=== PATIENT | female | born 1960 | race Caucasian/White ===

== ENCOUNTER 2023-07-18 16:18 | Outpatient (CLI) | payer MEDICARE, SELFPAY ==
--- NOTE | ~2023-07-18 | XR_ITS ---
XR shoulder LT min 2V DATE: 07/18/2023 16:40 INDICATION: Anterior and posterior left shoulder pain for one month after moving furniture TECHNIQUE: 4 views COMPARISON: None FINDINGS: There is resection of the lateral aspect of the left clavicle. Mild osteoarthritic spurring at the glenoid process. No fracture, dislocation, periosteal reaction or bone destruction or abnormal left shoulder soft tissue calcification. IMPRESSION: Resection of lateral aspect of left clavicle Mild left glenohumeral osteoarthritis Reviewed, dictated and finalized at location B.
== END 2023-07-18 16:19 | disposition home or self-care (01) ==
LOC: ANHIMG 16:22
PROVIDERS: PCP Family Medicine; Visit Provider Family Medicine
DX: M25.819 Other specified joint disorders, unspecified shoulder (principal); M19.012 Primary osteoarthritis, left shoulder
CPT/HCPCS: 73030

== ENCOUNTER 2023-10-13 17:53 | Inpatient (IN) | payer MEDICARE, SELFPAY ==
[2023-10-13] VITALS (25 sets, daily range): BP systolic 86–174; BP diastolic 59–130; PULSE 67–105; RESP 10–29; TEMP 36.4; O2SAT 95–100; BMI 29.6
--- NOTE | ~2023-10-13 | XR_ITS ---
XR chest 1V portable DATE: 10/15/2023 08:21 INDICATION: Shortness of breath TECHNIQUE: Portable upright AP chest on 10/15/2023 at 0817 hours COMPARISON: 10/13/2023 CTA chest abdomen pelvis FINDINGS: Heart size appears within normal range. No hilar or mediastinal enlargement. Minimal infiltrate or atelectasis at the lateral left lung base corresponding to basilar atelectasis or infiltrate in the lingula on 10/30/2023 CT examination. No pleural effusion or pneumothorax. Osteopenia. IMPRESSION: Minimal infiltrate or atelectasis at the base of the lingula Reviewed, dictated and finalized at location A.
--- NOTE | ~2023-10-13 | CT_ITS ---
CTA chest abdomen pelvis Ordering provider: Dinorah Landeros PA-C History: . CP, SOB . Comparison: None. Technique: CT angiogram chest was performed following timed intravenous injection of contrast. Thin s lice axial images and reformatted coronal images were obtained. Three dimensional reformatted images of the chest were also obtained using a [employer] workstation. Also, CT of the abdomen and pelvis was pe rformed with IV contrast. Radiation reduction technique utilized. FINDINGS: CHEST: --PULMONARY ARTERIES: No pulmonary embolus. --VISUALIZED THORACIC INLET: Normal. --MEDIASTINUM: Aorta/coronary arteries: Mild atheromatous disease. Heart/other: The heart is not enlarged. Lymph nodes: No mediastinal or hilar adenopathy. --LUNGS: Atelectasis versus pneumonia in the lingula. No pulmonary nodules or masses. No effusion or pneumotho rax. --MUSCULOSKELETAL: Bones: Age appropriate degenerative changes of the spine. Superficial soft tissues: The superficial soft tissues are normal. ABDOMEN/PELVIS: --MUSCULOSKELETAL: Superficial soft tissues: The superficial soft tissues are normal. Bones: Age appropriate degenerative changes of the spine. --UPPER ABDOMINAL ORGANS: Liver: Fat infiltration. Small cysts seen in segment #7 measuring 1.4 cm.. Hepatomegaly. Measures 20 cm. Gallbladder: Normal. Spleen: Normal. Stomach/duodenum: Normal. Pancreas: Normal. Adrenals: Normal. Tiny lipoma and the right adrenal gland Kidneys: Normal. --PELVIC ORGANS: The bladder is normal. No bladder stones. Uterus is normal. --BOWEL AND MESENTERY: Colon: No evidence of diverticulitis.. No evidence of appendicitis Small Bowel: Slightly dilated proximal small bowel loops are is noted with slight thickening no defin ite obstructing lesion seen Peritoneum/mesentery: No free air or free fluid. No mesenteric lymphadenopathy. --RETROPERITONEUM: Mild atheromatous disease of the abdominal aorta. No retroperitoneal lymphadenop athy. IMPRESSION: CHEST: 1. No pulmonary embolism. 2. Area of atelectasis versus pneumonia in the lingula. ABDOMEN/PELVIS: 1. Slightly dilated jejunal loops with thickened wall which may indicate ileitis. Follow-up advised. 2. Fat infiltration with small cyst. Hepatomegaly. Reviewed, dictated and finalized at location A. IMPRESSION: CHEST: 1. No pulmonary embolism. 2. Area of atelectasis versus pneumonia in the lingula. ABDOMEN/PELVIS: 1. Slightly dilated jejunal loops with thickened wall which may indicate ileit is. Follow-up advised. 2. Fat infiltration with small cyst. Hepatomegaly.
--- NOTE | 2023-10-13 17:54 | ECG_ITS ---
Test Date: 2023-10-13 17:59:39 Measurements Intervals [place] Rate: 75 P: 58 [place]: 149 QRS: 73 QRSD: 77 T: 75 QT: 362 QTc: 404 Interpretive Statements SINUS RHYTHM ST DEVIATION AND MODERATE T-WAVE ABNORMALITY, CONSIDER ANTERIOR ISCHEMIA [-0.1+ mV T-WAVE IN V3/V4] ABNORMAL ECG No previous ECG available for comparison Electronically Signed On 10-14-2023 07:05:32 CDT by Rajeev Gonzales M.D.
--- NOTE | 2023-10-13 18:04 | ED.CHESTPAIN ---
HPI - Chest Pain General Chief Complaint: Chest Pain Stated Complaint: chest pain X5 hours Time Seen by Provider: 10/13/23 18:04 Focused HPI: Patient is a 63-year-old female, with PMH of COPD/smoking, HLD, DM, who presents the ED with report of midsternal chest pain. Patient reports pain began 5 hours ago. She thought it was related to acid reflux. Attempted taking Prilosec at home, but denied improvement. Pain has continued to worsen, worse with exertion. She reports mild shortness breath, diaphoresis. Denies nausea, vomiting, abdominal pain. Denies previous history of CAD. GENERAL: Ill-appearing, well-nourished, and in mild acute distress due to pain. HEAD: Normocephalic, atraumatic. CHEST: Clear to auscultation. ?No respiratory distress. occasional wheezing. HEART: Regular rate and rhythm.? SKIN: Slightly pale and diaphoretic. NEURO: ?Alert and oriented x3. Patient screened in triage and initial orders placed.? ?Additional care and disposition to be based upon?diagnostic testing and treatment. Source: patient Mode of arrival: ambulatory Limitations: no limitations Related Data Allergies Allergy/AdvReac Type Severity Reaction Status Date / Time No Known Allergies Allergy Verified 10/13/23 17:53 [facility] Past Medical History Medical History (Updated 10/13/23 @ 18:49 by Dinorah Landeros PA-C) BMI 23.0-23.9, adult BMI 25.0-25.9,adult BMI 26.0-26.9,adult BMI 28.0-28.9,adult Diabetes type 2, controlled Essential hypertension H/O carpal tunnel syndrome History of kidney stones Neuropathy Other emphysema Shoulder impingement Tobacco abuse Surgical History Surgical History H/O knee surgery Hx of elbow surgery Hx of foot surgery Family History Family History Father Cerebrovascular accident Family history of coronary artery disease Mother Heart disease Sibling No problems noted. Social History Social History Smoking packs per day: 0.5 Smoking cigarettes per day: 10.0 Years smoked: 40 Smoking pack-years: 20.00 Smoking status: Current some day smoker (smoking 4ppd with patch on now) Tobacco type: cigarettes Second hand tobacco smoke exposure: Yes Alcohol intake: former Substance use: never Substance use type: does not use Do You Feel Safe in your Home?: Yes Lack of Transportation: No Lack of Food: Never True Current Housing: I Have Housing Concerned About Future Housing: No Difficulty Paying Gas/Electric Bills: No Difficulty Paying for Meds: No Currently Unemployed: No Education: High School Diploma/GED Difficulty w/ Childcare or Family Care: No Living arrangements: with family Occupation/Education: retired 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 Gender identity (if verbalized by the patient): Female Course Vital Signs Vital signs: Vital Signs Temperature 97.5 F L 10/13/23 17:54 Pulse Rate 67 10/13/23 17:54 Respiratory Rate 20 10/13/23 17:54 Blood Pressure 167/69 H 10/13/23 17:54 Pulse Oximetry 96 10/13/23 17:54 Oxygen Delivery Room Air 10/13/23 17:54 Temperature 97.5 F L 10/13/23 17:54 Pulse Rate 89 10/13/23 19:01 Respiratory Rate 29 H 10/13/23 19:01 Blood Pressure 164/98 H 10/13/23 19:01 Pulse Oximetry 97 10/13/23 19:03 Oxygen Delivery Nasal Cannula 10/13/23 19:03 Oxygen Flow Rate 3 10/13/23 19:03 MDM - Chest Pain MDM Narrative Medical decision making narrative: MSE by ALMAZ in triage. Lab Data 10/13/23 18:15 10/13/23 18:15 Labs: Lab Results 10/13/23 Range/Units 18:15 WBC 12.6 H (4.5-10.0) K/mm3 RBC 4.96 (4.2-5.4) M/mm3 Hgb 14.6 (12.0-15.0) g/dL Hct 44.8 (37.0-47.0) % MCV 90.3 (80-100) fl MCH 29.4 (26-34) pg MCHC 32.6 (3
[2023-10-13 18:22] LABS: Basophils Percent Auto 0.2 % (0.2-1.2); Eosinophils Absolute Auto 0.3 K/mm3 (0-0.3); Eosinophils Percent Auto 2.3 % (0-4.4); Hematocrit 44.8 % (37.0-47.0); Hemoglobin 14.6 g/dL (12.0-15.0); Immature Granulocyte Absolute 0.08 K/mm3 (0.00-0.031); Immature Granulocyte Percent A 0.6 % (0-0.5); Lymphocytes Percent Auto 14.2 % (18.3-44.2); Mean Corpuscular HGB Conc 32.6 g/dl (32-36); Mean Corpuscular Hemoglobin 29.4 pg (26-34); Mean Corpuscular Volume 90.3 fl (80-100); Mean Platelet Volume 11.5 fl (7.4-10.4); Monocytes Absolute Auto 0.7 K/mm3 (0.1-0.6); Monocytes Percent Auto 5.3 % (2.6-8.5); Neutrophils Absolute Auto 9.8 K/mm3 (1.3-6.7); Neutrophils Percent Auto 77.4 % (45.5-73.1); Platelet Count Result 198 k/mm3 (150-375); Red Blood Count 4.96 M/mm3 (4.2-5.4); Red Cell Distribution Width 13.8 % (11.5-14.5); White Blood Count 12.6 K/mm3 (4.5-10.0)
--- NOTE | 2023-10-13 18:23 | ED.CHESTPAIN ---
HPI - Chest Pain General Chief Complaint: Chest Pain <NA Chaidez Last Filed: 10/14/23 18:14> Stated Complaint: chest pain X5 hours <NA Cahidez Last Filed: 10/14/23 18:14> Time Seen by Provider: 10/13/23 18:04 <NA Chaidez Last Filed: 10/14/23 18:14> Focused HPI: Patient is a 63-year-old female, with PMH of COPD/smoking, HLD, DM, who presents the ED with report of midsternal chest pain. Patient reports pain began 5 hours ago. She thought it was related to acid reflux. Attempted taking Prilosec at home, but denied improvement. Pain has continued to worsen, worse with exertion. Radiates to back. She reports mild shortness breath, diaphoresis. Denies nausea, vomiting, abdominal pain. Denies previous history of CAD. GENERAL: Ill-appearing, well-nourished, and in mild acute distress due to pain. HEAD: Normocephalic, atraumatic. CHEST: Clear to auscultation. ?No respiratory distress. occasional wheezing. HEART: Regular rate and rhythm.? SKIN: Slightly pale and diaphoretic. NEURO: ?Alert and oriented x3. Patient screened in triage and initial orders placed.? ?Additional care and disposition to be based upon?diagnostic testing and treatment. <Malena Molina PA-C - Last Filed: 10/14/23 09:01> Source: patient <NA Chaidez Last Filed: 10/14/23 18:14> Mode of arrival: ambulatory <NA Chaidez Last Filed: 10/14/23 18:14> Limitations: no limitations <NA Chaidez Last Filed: 10/14/23 18:14> History of Present Illness HPI narrative: This is a 63-year-old female that presents to the emergency department for chest pain. Reports she had just woken up. She started to developed a substernal chest pain. She thought maybe she was having bad reflux. She took a Prilosec with no relief. She has had worsening pain since. Reports shortness of breath due to the pain. The pain radiates to her back. She does not have any known history of coronary artery disease. Denies lower extremity edema. <Dinorah Landeros PA-C - Last Filed: 10/14/23 18:14> Related Data Home Medications: Home Medications Medication Instructions Recorded Confirmed gabapentin 300 mg capsule 600 mg PO TID 10/14/23 10/14/23 <Dinorah Landeros PA-C - Last Filed: 10/14/23 18:14> Allergies/Adverse Reactions: Allergies Allergy/AdvReac Type Severity Reaction Status Date / Time No Known Allergies Allergy Verified 10/13/23 17:53 <Dinorah Landeros PA-C - Last Filed: 10/14/23 18:14> Review of Systems Review of Systems: CONSTITUTIONAL: Denies fever CARDIOVASCULAR: Reports chest pain. Denies palpitations, or edema. RESPIRATORY: Reports dyspnea. <Dinorah Landeros PA-C - Last Filed: 10/14/23 18:14> All systems reviewed & are unremarkable except as noted in HPI and below <Dinorah Landeros PA-C - Last Filed: 10/14/23 18:14> [facility] Past Medical History Medical History: Medical History (Updated 10/15/23 @ 15:34 by Adeline Aparicio PA-C) Chronic obstructive pulmonary disease Coronary artery disease Dyslipidemia Essential hypertension Kidney stones Neuropathy Other emphysema ST elevation (STEMI) myocardial infarction (10/13/23) Tobacco abuse Type 2 diabetes mellitus <Dinorah Landeros PA-C - Last Filed: 10/14/23 18:14> Surgical History Surgical History: Surgical History (Updated 10/15/23 @ 15:33 by Adeline Aparciio PA-C) History of cardiac catheterization History of carpal tunnel release History of coronary artery stent placement History of repair of rotator cuff <Dinorah Landeros PA-C - Last Filed: 10/14/23 18:14> Family History Family History: Family History Father Cerebrovascular accident Family history of coronary artery disease Mother Heart disease Sibling No problems noted. <NA Chaidez
[2023-10-13] MEDS: MORPHINE SULFATE (*CRX) 4 MG/ML INJ IV PUSH ×2 (18:27→19:27)
[2023-10-13] MEDS: ONDANSETRON INJ 4 MG/2 ML VIAL IV PUSH ×2 (18:27→23:03)
--- NOTE | 2023-10-13 18:28 | ECG_ITS ---
Test Date: 2023-10-13 21:02:02 Measurements Intervals [place] Rate: 92 P: 0 [place]: 0 QRS: 239 QRSD: 151 T: 62 QT: 381 QTc: 473 Interpretive Statements UNCERTAIN REGULAR RHYTHM MARKED RIGHT AXIS DEVIATION [QRS AXIS > 100] RIGHT BUNDLE BRANCH BLOCK [120+ ms QRS DURATION, UPRIGHT V1, 40+ ms S IN I/aVL/V4/V5/V6] INFERO POSTERIOR INFARCTION Compared to ECG 10/13/2023 17:59:39 INFERIOR INFARCTION AND RIGHT BUNDLE BRANCH BLOCK ARE NOW DEMONSTRATED ATRIAL RHYTHM IS UNCERTAIN, SINUS P-WAVES ARE NOT SEEN Electronically Signed On 10-14-2023 07:11:20 CDT by Rajeev Gonzales M.D.
[2023-10-13 18:32] LABS: Alanine Aminotransferase 70 U/L (6-35); Albumin Level 4.7 g/dL (3.5-5.1); Alkaline Phosphatase 132 U/L (38-126); Anion Gap 7 mmol/L (4-12); Aspartate Amino Transferase 58 U/L (14-36); Bilirubin,Total 0.7 mg/dL (0.2-1.3); Blood Urea Nitrogen 11 mg/dL (7-17); Calcium 9.2 mg/dL (8.4-10.2); Carbon Dioxide 33 mmol/L (22-30); Chloride 100 mmol/L (98-107); Estimated CRCL calculation 70 ml/min; Estimated Glomerular Filt Rate > 60; Glucose 169 mg/dL (65-110); INR 0.9; Lipase 100 U/L (23-300); Potassium 3.7 mmol/L (3.4-5.0); Prothrombin Time 12.6 Seconds (11.1-14.7); Sodium 140 mmol/L (137-145)
[2023-10-13 18:33] LABS: Partial Thromboplastin Time 25.3 Seconds (22.3-36.8)
[2023-10-13] MEDS: ASPIRIN 81 MG CHEWABLE TABLET 324 MG PO (18:48)
[2023-10-13] MEDS: HEPARIN SODIUM 5,000 UNITS/ML VIAL 4000 UNITS IV PUSH (18:55)
[2023-10-13] MEDS: METOPROLOL TARTRATE INJ 5 MG/5 ML VIAL IV PUSH (18:56)
[2023-10-13] MEDS: HEPARIN SOD/D5W 100 UNITS/ML 25,000 UNITS/250 ML BAG 7 UNITS IV CONT (19:15)
--- NOTE | 2023-10-13 19:45 | PC.NURSE ---
ship laborer nurses arrived at 192 and took the patient off the unit at 193. spouse was directed to ICU waiting room. patient was taken down with chart, on monitor, 3L NC, and heparin infusing.
--- NOTE | 2023-10-13 20:22 | PM.IMHP ---
H&P: HPI History of Present Illness Date/Time: 10/13/23 20:22 Chief Complaint: chest pain Narrative: this is a 63-year-old woman unknown to me prior to this evening. I was summoned by the emergency room when STEMI has been activated. Apparently she began to have chest pain earlier today this morning. She was suspicious the symptoms represented dyspepsia and she was taking and acids with not much relief and so she came into the emergency room this evening. Her initial echo electrocardiogram demonstrated some anterior precordial T-wave inversions but no ST segment deviation. Subsequent EKG however demonstrates inferior ST elevation with reciprocal depression and then STEMI was activated. She still having 8 to 9/10 chest pain upon entering the in the cardiac catheterization lab. The patient reports a prior history of non insulin-dependent diabetes, hypertension, dyslipidemia and cigarette smoking. Review of Systems Review of Systems: ROS unobtainable: Yes unobtainable due to medical condition [facility] Past Medical History Medical History (Updated 10/13/23 @ 18:49 by Dinorah Landeros PA-C) BMI 23.0-23.9, adult BMI 25.0-25.9,adult BMI 26.0-26.9,adult BMI 28.0-28.9,adult Diabetes type 2, controlled Essential hypertension H/O carpal tunnel syndrome History of kidney stones Neuropathy Other emphysema Shoulder impingement Tobacco abuse Surgical History Surgical History H/O knee surgery Hx of elbow surgery Hx of foot surgery Family History Family History Father Cerebrovascular accident Family history of coronary artery disease Mother Heart disease Sibling No problems noted. Social History Social History Smoking packs per day: 0.5 Smoking cigarettes per day: 10.0 Years smoked: 40 Smoking pack-years: 20.00 Smoking status: Current some day smoker (smoking 4ppd with patch on now) Tobacco type: cigarettes Second hand tobacco smoke exposure: Yes Alcohol intake: former Substance use: never Substance use type: does not use Do You Feel Safe in your Home?: Yes Lack of Transportation: No Lack of Food: Never True Current Housing: I Have Housing Concerned About Future Housing: No Difficulty Paying Gas/Electric Bills: No Difficulty Paying for Meds: No Currently Unemployed: No Education: High School Diploma/GED Difficulty w/ Childcare or Family Care: No Living arrangements: with family Occupation/Education: retired 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 100 mcg-umeclid 1 inh inhalation DAILY #60 ea 03/21/23 07/18/23 Rx 62.5 mcg-vilant 25 mcg inhalat.powder (Trelegy Ellipta) glimepiride 1 mg tablet 1 mg PO QAM #90 tabs 03/21/23 07/18/23 Rx metformin 500 mg tablet,extended 2,000 mg PO .Q5PM #360 tabs 03/21/23 07/18/23 Rx release 24hr (osmotic) gabapentin 300 mg capsule See Rx Instructions .Route 07/12/23 07/18/23 Rx .COMPLEX #180 caps zolpidem 5 mg tablet (Ambien) 5 mg PO QHS PRN insomnia #90 tabs 07/27/23 Rx lisinopril 10 mg tablet 10 mg PO DAILY #90 tabs 09/11/23 Rx trazodone 50 mg tablet 50 mg PO QHS #90 tabs 09/14/23 Rx clonazepam 0.5 mg tablet 0.5 mg PO QID PRN anxiety #120 tabs 09/29/23 Rx Allergies Allergy/AdvReac Type Severity Reaction Status Date / Time No Known Allergies Allergy
--- NOTE | 2023-10-13 20:24 | PC.NURSE ---
Report received from Clementina RN
--- NOTE | 2023-10-13 20:25 | WPDCARDPROC ---
Cardiac Cath Procedure Note Date of procedure:: 10/13/23 Performing physician:: Rajeev Gonzales MD Indication:: infero posterior ST elevation in Brief clinical history:: this is a 63-year-old woman with multiple coronary risk factors having chest pain all day. Her presenting ECG to the emergency room was nondiagnostic. A 2nd tracing however demonstrates inferior posterior STEMI the team has been activated she is now being brought emergently to the cardiac catheterization lab in this setting Procedure Procedure performed:: emergency coronary angiography emergency PCI(NISA) to the proximal circumflex left ventriculography Sedation/Medication given:: fentanyl 50 mg Versed 2 mg Access site:: right femoral artery Estimated blood loss:: 25 cc Procedure note:: patient was brought to the cardiac catheterization lab in the emergency setting described above. The femoral triangles were prepped and draped in the usual fashion. 1% lidocaine was infiltrated locally in the right groin. Following this right femoral artery was punctured using the modified Seldinger technique and a 6 American vascular sheath was placed. After this I used a 5 American FL4 catheter to engage and inject the left coronary artery in multiple projections. The 5 American JR4 catheter was used to engage and inject the right coronary artery in orthogonal projections. After this the cineangiograms were reviewed and PCI of proximal circumflex was recommended and carried out as detailed below. The patient had received aspirin and 180 mg of Brilinta before the case. She received bolus and infusion of Angiomax for this PCI. Following intervention as described below the guiding catheters were removed and a 5 American angled pigtail catheter was used to measure left-sided hemodynamics and to inject the left ventriculogram in the 30 degree RUSHING projection. The case was then terminated the sheath was sutured into position the patient was taken to the ICU post mi/PCI recovery. There were no apparent procedural complications she left the cath lab technologist with no evidence of groin hematoma. Findings:: Hemodynamics: Central aortic pressure 148 over 78 left ventricle 148 over 24 end-diastolic 38, no gradient on pullback the aortic valve. Left ventricle: The LV is normal in size the posterior inferior segment is akinetic the remainder of the LV contracts well global ejection fraction is 45%. The left main coronary artery is large caliber and widely patent the left anterior descending is a large caliber artery extending down to the apex. The LAD and its branches are smooth free of disease. The circumflex is a large caliber artery which is 100% occluded proximally prior to any marginal branches taking their origin. This angiographically has the appearance of an abrupt acute thrombotic occlusion the right coronary artery is medium in caliber and dominant the posterior circulation right coronary artery is angiographically free of disease. Intervention: The left coronary artery was engaged using a 6 American CLS 3.5 guiding catheter. I used a 0.014 BMW coronary guidewire to probe the occluded circumflex traverse the occlusion wire was advanced into the distal circumflex. The target lesion was then dilated using a 3 x 20 mm Panterra balloon at nominal pressure which restored nice patency and HIREN 3 flow in the circumflex there were 2 marginal branches and a posterior branch that were distal to the proximal occlusion. This lesion was then treated with a 3.5 x 22 mm Kirondo stent with an excellent anatomical result no residual stenosis disruption dissection or distal embolization. Conclusion:: 1. Right coronary dominant circulation with acute posterior inferior myocardial infarction resulting from 100% occlusion of the proximal circumflex as detailed above 2. no significant left main, lad or right coronary disease 3. infero posterior akinesia. Ejection frac
[2023-10-13 21:54] LABS: Cholesterol 171 mg/dL (0-200); HDL Direct 42 mg/dL; Triglycerides 231 mg/dL (<150)
[2023-10-13 22:04] LABS: LDL Cholesterol Direct 114 mg/dL
[2023-10-13 22:14] LABS: Troponin I > 80.000 ng/mL (0.000-0.034)
[2023-10-13] MEDS: FUROSEMIDE INJ 40 MG/4 ML VIAL IV PUSH (22:52)
[2023-10-13] MEDS: METOPROLOL SUCCINATE EXT REL 25 MG TABCR PO (22:53)
[2023-10-13] MEDS: SODIUM CHLORIDE 0.9% IV 1,000 ML 125 ML IV CONT (22:54)
[2023-10-14] VITALS (16 sets, daily range): BP systolic 81–123; BP diastolic 49–99; PULSE 65–94; RESP 10–28; TEMP 36.4–37; O2SAT 71–100
[2023-10-14] MEDS: ONDANSETRON INJ 4 MG/2 ML VIAL IV PUSH (00:14)
[2023-10-14 00:44] LABS: Troponin I > 80.000 ng/mL (0.000-0.034)
[2023-10-14] MEDS: ZOLPIDEM TARTRATE (*CRX) 5 MG TABLET PO ×2 (01:43→20:25)
[2023-10-14] MEDS: clonazePAM (*CRX) 0.5 MG TABLET PO ×3 (01:43→23:12)
[2023-10-14] MEDS: NITROGLYCERIN SL 0.4 MG TABLET SUBLINGUAL (06:26)
--- NOTE | 2023-10-14 07:04 | ADMGEN ---
This patient, Patsy Nguyen, was admitted to Intensive Care Unit-8 on 10/13/23 at 2040. Patient/family oriented to hospital policies and general routines including ID bracelet, bed and alarms, visiting hours, pain management, procedures, bathroom and other care routines, personal items, smoking policy, room service/diet, and visiting hours. Information on how to activate the Rapid Response Team has been discussed. Patient/Family are encouraged to report perceived risks to care and to ask questions if they do not understand what they are told or what they should do.
[2023-10-14 08:00] LABS: Glucose Point of Care 187 mg/dl (65-105)
--- NOTE | 2023-10-14 08:18 | WPDCNINT ---
Assessment and Plan Assessment and plan (1) ST elevation (STEMI) myocardial infarction: Qualifiers: Involved coronary artery: unspecified coronary artery Qualified Code(s): I21.3 - ST elevation (STEMI) myocardial infarction of unspecified site Code(s): I21.3 - ST elevation (STEMI) myocardial infarction of unspecified site Status: Acute Assessment and Plan: STEMI status post PTCA/PCI with NISA x1 to proximal circumflex, EF 45% with very high LVEDP of 38 mmHg, patient was given Lasix 40 mg IV x1 in the construction or leak gang laborer by cardiology. 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 insulin use: without residential use Diabetes mellitus complication status: without complication Qualified Code(s): E11.9 - Type 2 diabetes mellitus without complications Code(s): E11.9 - Type 2 diabetes mellitus without complications Status: Acute Assessment and Plan: Continue Accu-Cheks and sliding scale insulin (3) Essential hypertension: Code(s): I10 - Essential (primary) hypertension Status: Acute Assessment and Plan: Currently hypotensive, continue to monitor blood pressures closely, IV fluid bolus given (4) Severe chronic obstructive pulmonary disease: Code(s): J44.9 - Chronic obstructive pulmonary disease, unspecified Status: Acute Assessment and Plan: Restart home bronchodilators (5) Tobacco abuse: Code(s): Z72.0 - Tobacco use Status: Acute Assessment and Plan: Consult on cessation of tobacco use (6) Mixed hyperlipidemia: Code(s): E78.2 - Mixed hyperlipidemia Status: Acute Assessment and Plan: Continue rosuvastatin Plan DVT prophylaxis: Status post cardiac catheterization Stress ulcer prophylaxis: Not indicated Nutrition: Heart healthy diet Code Status: Full code Critical Care Time Spent: [address] Gonzales Due to a high probability of clinically significant, life threatening deterioration, the patient required my highest level of preparedness to intervene emergently and I personally spent this critical care time directly and personally managing the patient. This critical care time included obtaining a history; examining the patient; pulse oximetry; ordering and review of studies; arranging urgent treatment with development of a management plan; evaluation of patient's response to treatment; frequent reassessment; and discussions with other providers. It was exclusive of separately billable procedures and treating other patients and teaching time. Please see Assessment and Plan section and the rest of the note for further information on patient assessment and treatment This dictation may have been done utilizing a voice recognition system. Attempts have been made to correct errors. However, there may be uncorrected grammatical, spelling, and recognitions errors present. Child & Adolescent Psychiatrist Consult Note Consult date: 10/14/23 Reason for consult: STEMI status post PTCA/PCI with NISA x1 to proximal circumflex, EF 45% with very high LVEDP of 38 mmHg HPI: Patsy Nguyen is a 63 year old female past medical history of diabetes type 2 essential hypertension, emphysema, tobacco abuse, neuropathy presented the ED on 10/13/2023 at [facility] with complains of chest pain earlier during the day of admission, she started his dyspepsia took some antacids without much relief and presented the ER in the evening on the day of adm
--- NOTE | 2023-10-14 08:25 | ECG_ITS ---
Test Date: 2023-10-14 08:33:13 Measurements Intervals [place] Rate: 65 P: 63 [place]: 143 QRS: 144 QRSD: 81 T: 134 QT: 416 QTc: 435 Interpretive Statements SINUS RHYTHM inferolateral ST elevation ACUTE IN Compared to ECG 10/13/2023 21:02:02 Right-axis deviation no longer present Right bundle-branch block no longer present Electronically Signed On 10-15-2023 15:48:02 CDT by Maldonado Henning M.D.
[2023-10-14] MEDS: SODIUM CHLORIDE 0.9% IV 500 ML IV CONT (08:33)
--- NOTE | 2023-10-14 08:36 | PCCPR ---
Spoke with Patsy at bedside. She seemed drowsy, overview of the program given and left with our h/o. Nurse mentioned there is a program in [place] if that would be more convenient for her. She did express if she chose to attend it likely would be in [place].
[2023-10-14] MEDS: SODIUM CHLORIDE 0.9% IV 500 ML (08:46)
[2023-10-14] MEDS: HYDROcodone/acetaminophen (*CRX) 5-325 MG TABLET 1 TAB PO (08:56)
[2023-10-14] MEDS: ROSUVASTATIN 10 MG TABLET 20 MG PO (08:56)
[2023-10-14] MEDS: TICAGRELOR 90 MG TABLET PO ×2 (08:56→20:25)
[2023-10-14] MEDS: ASPIRIN 81 MG CHEWABLE TABLET PO (08:56)
[2023-10-14] MEDS: LIDOCAINE 5% PATCH 1 PATCH TRANSDERM (08:57)
--- NOTE | 2023-10-14 09:55 | PM.PNCARD ---
Progress Note: A&P Assessment and Plan (1) ST elevation (STEMI) myocardial infarction: Qualifiers: Involved coronary artery: unspecified coronary artery Qualified Code(s): I21.3 - ST elevation (STEMI) myocardial infarction of unspecified site Code(s): I21.3 - ST elevation (STEMI) myocardial infarction of unspecified site Status: Acute Assessment and Plan: Presents with acute posterior inferior myocardial infarction resulting from 100% occlusion of the proximal circumflex now s/p PCI. Mildly hypotensive this morning, receiving fluid bolus. Still complaining of chest pain which is highly reproducible. Continue DAPT with Brilinta 90mg b.i.d for 1 year and ASA 81mg daily indefinitely Continue high intensity statin Continue losartan, metoprolol Continue aggressive risk factor modification for CAD including smoking cessation Echo is pending Cardiac rehab referral Anticipate discharge in 24-48 hours (2) Essential hypertension: Code(s): I10 - Essential (primary) hypertension Status: Acute Assessment and Plan: Mildly hypotensive this morning receiving IV fluids (3) Mixed hyperlipidemia: Code(s): E78.2 - Mixed hyperlipidemia Status: Acute Assessment and Plan: Continue high intensity statin (4) Tobacco abuse: Code(s): Z72.0 - Tobacco use Status: Acute Assessment and Plan: Smoking cessation recommended. (5) Coronary artery disease: Code(s): I25.10 - Atherosclerotic heart disease of [place] coronary artery without angina pectoris Status: Acute Assessment and Plan: Newly diagnosed CAD presenting with STEMI. Continue DAPT, high intensity statin. Subjective Date/time seen: 10/14/23 09:55 Interval history: Cardiology follow-up for coronary artery disease, STEMI Date of service 10/14/2023: Continues to complain of chest pain 5/10 intensity. She states the pain never fully subsided following PCI. Otherwise she is feeling okay and has no other complaints. Review of Systems Review of Systems: ROS unobtainable: Yes unobtainable due to medical condition Exam Const: General: comfortable and no acute distress Other: Sleeping, awakens to voice. HENMT: Mouth: Yes moist mucous membranes Eyes: Sclera: sclerae normal Neck: Neck: supple Other: no obvious JVD, no carotid bruits are audible Resp: Effort & Inspection: normal respiratory effort Other: basilar rales are present Cardio: Rate: regular rate Rhythm: regular rhythm Heart sounds: no murmurs GI: Auscultation: normal bowel sounds Skin: General skin exam: normal color Neuro: Other: alert and oriented x3 Extrem: Other: no edema, adequate perfusion Right femoral arterial access site free from bleeding, hematoma, pain, swelling. Psych: Appearance: grossly normal Objective Data Vital Signs Vital Signs: Vital Signs - 24 hr 10/13/23 17:54 10/13/23 18:10 10/13/23 18:45 Temperature 36.4 C L Pulse Rate 67 Pulse Rate [Bilateral Pedal (Dorsalis Pedis) Palpation] Respiratory Rate 20 Blood Pressure 167/69 H Pulse Oximetry 96 97 99 Oxygen Delivery Room Air Room Air Nasal Cannula Oxygen Flow Rate 5 10/13/23 18:26 10/13/23 18:56 10/13/23 19:03 Temperature Pulse Rate 79 101 H Pulse Rate [Bilateral Pedal (Dorsalis Pedis) Palpation] Respiratory Rate 15 Blood Pressure 173/97 H Pulse Oximetry 95 97 Oxygen Delivery Nasal Cannula Oxygen Flow Rate 3 10/13/23 18:55 10/13/23 18:57 10/13/23 19:01 Temperature Pulse Rate 103 H 105 H 89 Pulse Rate [Bilateral Pedal (Dorsalis Pedis) Palpation] Respiratory Rate 19 20 29 H Blood Pressure 174/95 H 163/107 H 164/98 H Pulse Oximetry 100 99 98 Oxygen Delivery Oxygen Flow Rate 10/13/23 19:07 10/13/23 19:12 10/13/23 19:17 Temperature Pulse Rate 83 77 78 Pulse Rate [Bilateral Pedal (Dorsalis Pedis) Palpation] Res
[2023-10-14 11:55] LABS: Glucose Point of Care 198 mg/dl (65-105)
[2023-10-14 15:52] LABS: Glucose Point of Care 166 mg/dl (65-105)
[2023-10-14 18:05] LABS: MRSA (PCR) NOT DETECTED (NOT DETECTE)
[2023-10-14 20:25] LABS: Glucose Point of Care 185 mg/dl (65-105)
[2023-10-15] VITALS (19 sets, daily range): BP systolic 103–145; BP diastolic 41–79; PULSE 73–103; RESP 14–37; TEMP 36–37.3; O2SAT 92–99
[2023-10-15 04:07] LABS: Basophils Percent Auto 0.1 % (0.2-1.2); Eosinophils Absolute Auto 0.2 K/mm3 (0-0.3); Eosinophils Percent Auto 1.6 % (0-4.4); Hematocrit 41.3 % (37.0-47.0); Hemoglobin 13.4 g/dL (12.0-15.0); Immature Granulocyte Absolute 0.06 K/mm3 (0.00-0.031); Immature Granulocyte Percent A 0.4 % (0-0.5); Lymphocytes Absolute Auto 1.05 K/mm3 (0.9-3.2); Lymphocytes Percent Auto 7.5 % (18.3-44.2); Mean Corpuscular HGB Conc 32.4 g/dl (32-36); Mean Corpuscular Hemoglobin 29.8 pg (26-34); Monocytes Absolute Auto 0.8 K/mm3 (0.1-0.6); Monocytes Percent Auto 5.4 % (2.6-8.5); Neutrophils Absolute Auto 11.9 K/mm3 (1.3-6.7); Platelet Count Result 168 k/mm3 (150-375); Red Blood Count 4.49 M/mm3 (4.2-5.4); Red Cell Distribution Width 13.9 % (11.5-14.5)
[2023-10-15 04:22] LABS: Alanine Aminotransferase 114 U/L (6-35); Albumin Level 3.9 g/dL (3.5-5.1); Alkaline Phosphatase 108 U/L (38-126); Anion Gap 2 mmol/L (4-12); Aspartate Amino Transferase 248 U/L (14-36); Bilirubin,Total 0.8 mg/dL (0.2-1.3); Blood Urea Nitrogen 13 mg/dL (7-17); Calcium 8.2 mg/dL (8.4-10.2); Carbon Dioxide 32 mmol/L (22-30); Chloride 103 mmol/L (98-107); Estimated CRCL calculation 72 ml/min; Estimated Glomerular Filt Rate > 60; Glucose 204 mg/dL (65-110); Phosphorus 2.3 mg/dL (2.5-4.5); Potassium 4.1 mmol/L (3.4-5.0); Sodium 137 mmol/L (137-145)
[2023-10-15 04:23] LABS: Lactic Acid Reflex 0.9 mmol/L (0.7-2.0)
[2023-10-15] MEDS: clonazePAM (*CRX) 0.5 MG TABLET PO ×2 (06:42→19:01)
[2023-10-15] MEDS: FLUTICASONE/UMECLIDIN/VILANTER 100-62.5-25 MCG ELLIPTA 1 PUFF INHALATION (07:09)
[2023-10-15 07:51] LABS: Glucose Point of Care 168 mg/dl (65-105)
[2023-10-15] MEDS: ASPIRIN 81 MG CHEWABLE TABLET PO (08:25)
[2023-10-15] MEDS: GABAPENTIN 300 MG CAPSULE 600 MG PO ×3 (08:25→18:54)
[2023-10-15] MEDS: METOPROLOL SUCCINATE EXT REL 25 MG TABCR PO (08:26)
[2023-10-15] MEDS: LOSARTAN POTASSIUM 25 MG TABLET PO (08:26)
[2023-10-15] MEDS: GLIMEPIRIDE 1 MG TABLET PO (08:26)
[2023-10-15] MEDS: ROSUVASTATIN 10 MG TABLET 20 MG PO (08:26)
[2023-10-15] MEDS: EMPAGLIFLOZIN 25 MG TABLET PO (08:26)
[2023-10-15] MEDS: SPIRONOLACTONE 25 MG TABLET PO (08:26)
[2023-10-15] MEDS: TICAGRELOR 90 MG TABLET PO ×2 (08:26→20:52)
[2023-10-15] MEDS: LIDOCAINE 5% PATCH 1 PATCH TRANSDERM (08:27)
--- NOTE | 2023-10-15 10:36 | WPDINTPN ---
Progress Note: A&P Assessment and Plan (1) ST elevation (STEMI) myocardial infarction: Qualifiers: Involved coronary artery: unspecified coronary artery Qualified Code(s): I21.3 - ST elevation (STEMI) myocardial infarction of unspecified site Code(s): I21.3 - ST elevation (STEMI) myocardial infarction of unspecified site Status: Acute Assessment and Plan: STEMI status post PTCA/PCI with NISA x1 to proximal circumflex, EF 45% with very high LVEDP of 38 mmHg, patient was given Lasix 40 mg IV x1 in the photo lab specialist by cardiology. -10/13: continues to have chest pain, EKG this morning showed ST elevation in leads II and AVF, discussed with cardiology, no further intervention at this time. -patient was given [place] for chest pain in placed lidocaine patch. 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 Fluid bolus of 500 mL was given IV, patient was being monitored in the ICU, improved a blood pressures, -blood pressures have been stable, continue to monitor (4) Severe chronic obstructive pulmonary disease: Code(s): J44.9 - Chronic obstructive pulmonary disease, unspecified Status: Acute Assessment and Plan: Continue home bronchodilators (5) Tobacco abuse: Code(s): Z72.0 - Tobacco use Status: Acute Assessment and Plan: Counseled on cessation of smoking on 10/13, patient was equivocal about it (6) Mixed hyperlipidemia: Code(s): E78.2 - Mixed hyperlipidemia Status: Acute Assessment and Plan: Continue rosuvastatin Plan DVT prophylaxis: Status post cardiac catheterization Stress ulcer prophylaxis: Not indicated Nutrition: Heart healthy diet Code Status: Full code Critical Care Time Spent: 31 minutes Cardiology has downgraded the patient to IMU status Due to a high probability of clinically significant, life threatening deterioration, the patient required my highest level of preparedness to intervene emergently and I personally spent this critical care time directly and personally managing the patient. This critical care time included obtaining a history; examining the patient; pulse oximetry; ordering and review of studies; arranging urgent treatment with development of a management plan; evaluation of patient's response to treatment; frequent reassessment; and discussions with other providers. It was exclusive of separately billable procedures and treating other patients and teaching time. Please see Assessment and Plan section and the rest of the note for further information on patient assessment and treatment This dictation may have been done utilizing a voice recognition system. Attempts have been made to correct errors. However, there may be uncorrected grammatical, spelling, and recognitions errors present. Subjective Date/time seen: 10/15/23 10:36 Interval history: Reason for consult: STEMI status post PTCA/PCI with NISA x1 to proximal circumflex, EF 45% with very high LVEDP of 38 mmHg 10/13: Ongoing chest pain 10/15/2023: Patient seen and examined the ICU, denies any chest pain, shortness on breath, abdominal pain, nausea vomiting. Overnight was complaining of some cough and requested for mo
[2023-10-15 11:15] LABS: Glucose Point of Care 146 mg/dl (65-105)
--- NOTE | 2023-10-15 14:46 | PM.PNCARD ---
Progress Note: A&P Assessment and Plan (1) ST elevation (STEMI) myocardial infarction: Qualifiers: Involved coronary artery: unspecified coronary artery Qualified Code(s): I21.3 - ST elevation (STEMI) myocardial infarction of unspecified site Code(s): I21.3 - ST elevation (STEMI) myocardial infarction of unspecified site Status: Acute Plan STEMI lateral wall status post PCI of circumflex with NISA Acute on chronic systolic heart failure ejection fraction 45% currently decompensated Proximal atrial tachycardia Hypertension Continue aspirin and Brilinta Lasix 40 mg IV b.i.d. Continue losartan and spironolactone Continue statin Patient would likely need to be observed in the hospital for 48 hours Consult hospitalist service and transferring service to hospice as a primary. Subjective Date/time seen: 10/15/23 14:46 Interval history: Shortness of breath overnight Telemetry sinus rhythm with paroxysmal atrial tachycardia versus atrial flutter Review of Systems Review of Systems: All systems reviewed & are unremarkable except as noted in HPI and below Exam Const: General: comfortable and no acute distress Other: Able to lie flat HENMT: Face/Nose/Sinus: Normal nares present and no epistaxis Mouth: Yes moist mucous membranes Eyes: Sclera: sclerae normal Pupils: Equal, round and reactive pupils present Neck: Neck: supple and no JVD Carotids: no bruits Resp: Auscultation: clear to auscultation bilaterally and lung sounds not diminished Other: No chest wall tenderness Cardio: Rate: regular rate Rhythm: regular rhythm Heart sounds: no gallops, no murmurs and no rubs GI: GI Palp: Yes Soft to palpation and No Tenderness to palpation present (GI) Auscultation: normal bowel sounds Skin: General skin exam: normal color, rashes and/or lesions noted and no erythema Other: Warm Neuro: Cranial nerves: Yes Equal, round and reactive pupils present Speech: normal speech Other: No obvious focal deficit or facial asymmetry Extrem: General: no edema Other: Normal capillary refills Intact distal pulses. Objective Data Vital Signs Vital Signs: Vital Signs - 24 hr 10/14/23 16:00 10/14/23 16:00 10/14/23 16:00 Temperature 36.8 C Pulse Rate 72 71 71 Respiratory Rate 18 18 Blood Pressure 106/56 L Pulse Oximetry 92 92 Oxygen Delivery Nasal Cannula Oxygen Flow Rate 1 10/14/23 18:00 10/14/23 18:00 10/14/23 20:00 Temperature 37.0 C Pulse Rate 79 78 85 Respiratory Rate 18 23 H Blood Pressure 108/63 110/75 Pulse Oximetry 95 96 Oxygen Delivery Oxygen Flow Rate 10/14/23 20:00 10/14/23 20:00 10/14/23 22:00 Temperature Pulse Rate 82 86 Respiratory Rate 25 H Blood Pressure 123/66 Pulse Oximetry 95 97 Oxygen Delivery Nasal Cannula Oxygen Flow Rate 2 10/14/23 22:00 10/15/23 00:00 10/15/23 00:00 Temperature Pulse Rate 86 89 Respiratory Rate Blood Pressure Pulse Oximetry 97 Oxygen Delivery Nasal Cannula Oxygen Flow Rate 2 10/14/23 23:01 10/15/23 00:01 10/15/23 02:00 Temperature Pulse Rate 94 87 87 Respiratory Rate 28 H 37 H Blood Pressure 116/59 L 127/56 L Pulse Oximetry 96 97 Oxygen Delivery Oxygen Flow Rate 10/15/23 02:01 10/15/23 03:01 10/15/23 04:00 Temperature 37.1 C Pulse Rate 88 91 Respiratory Rate 25 H 27 H Blood Pressure 110/65 129/70 Pulse Oximetry 98 99 98 Oxygen Delivery Nasal Cannula Oxygen Flow Rate 2 10/15/23 04:00 10/15/23 04:00 10/15/23 06:00 Temperature 37.1 C Pulse Rate 103 H 96 82 Respiratory Rate 27 H Blood Pressure 129/41 L Pulse Oximetry 98 Oxygen Delivery Oxygen Flow Rate 10/15/23 05:01 10/15/23 06:00 10/15/23 07:11 Temperature Pulse Rate 84 82 Respiratory Rate 23 H 20 Blood Pressure 133/79 Pulse Oximetry 95 96 Oxygen Delivery Nasal Cannula Oxygen Flow Rate 2.5 10/15/23 08:00 06
--- NOTE | 2023-10-15 15:15 | PC.NURSE ---
This patient, Patsy Nguyen, was transferred to [facility] on 10/15/23 at 1515. Personal belongings sent with patient. Report given to Cece SULLIVAN. Appropriate documentation sent with patient.
--- NOTE | 2023-10-15 15:23 | WPDCN ---
Assessment and Plan Assessment and plan (1) ST elevation (STEMI) myocardial infarction: Onset Date: 10/13/23 Qualifiers: Involved coronary artery: unspecified coronary artery Qualified Code(s): I21.3 - ST elevation (STEMI) myocardial infarction of unspecified site Code(s): I21.3 - ST elevation (STEMI) myocardial infarction of unspecified site Status: Acute Assessment and Plan: Status post PCI and stent to the circumflex. On aspirin, Brilinta, losartan, and statin. (2) Elevated liver function tests: Code(s): R94.5 - Abnormal results of liver function studies Status: Acute Assessment and Plan: Likely related to [place]. Abdominal exam is benign. Continue to trend. (3) Chronic obstructive pulmonary disease: Code(s): J44.9 - Chronic obstructive pulmonary disease, unspecified Status: Acute Assessment and Plan: No evidence of acute exacerbation. Continue maintenance inhalers and p.r.n. DuoNebs as needed. (4) Type 2 diabetes mellitus: Code(s): E11.9 - Type 2 diabetes mellitus without complications Status: Acute Assessment and Plan: Continue empagliflozin and glimepiride. Initiate sliding scale insulin, Accu-Cheks, and hypoglycemic protocol. (5) Essential hypertension: Code(s): I10 - Essential (primary) hypertension Status: Acute Assessment and Plan: Blood pressures were reviewed and they have been stable. Continue current medications and monitor closely. (6) Dyslipidemia: Code(s): E78.5 - Hyperlipidemia, unspecified Status: Acute Assessment and Plan: On rosuvastatin 20 mg. LFTs elevated though likely related to [place]. (7) Tobacco abuse: Code(s): Z72.0 - Tobacco use Status: Acute Assessment and Plan: Smoking cessation is imperative and was discussed. She declines the need for nicotine patch and seems motivated to quit. Plan Thank you for allowing us to participate in this patient's care. Please do not hesitate to contact us with any questions. HPI Data of Consult Date/Time: 10/15/23 16:00 Consult Narrative Reason for consult: Medical management. Narrative: This is a pleasant 63-year-old female smoker with coronary artery disease, hypertension, dyslipidemia, chronic obstructive pulmonary disease, and type 2 diabetes mellitus whom the hospitalist service has been consulted for help managing her medical conditions. She presented to the emergency department in the evening of 10/13/2023 with complaints of chest pain. STEMI was declared and she underwent successful PCI of a 100% occluded proximal circumflex with a drug-eluting stent. LVEDP was significantly elevated at 38 mmHg and she was given IV furosemide in the laboratory sample carrier. EF was noted to be 45%. She is currently being diuresed with improvement. At the time my evaluation she is resting comfortably and has no complaints. She has not had any recurrent chest pain and she is not having any significant shortness of breath. She has an occasional cough which is not unusual for her. She denies wheezing. She also denies fever, chills, sweats, pleuritic pain, palpitations, vomiting, diarrhea, and dysuria. Review of Systems Review of Systems: 12 systems were reviewed and are negative except for as per HPI. [facility] Past Medical History Medical History (Updated 10/15/23 @ 15:34 by Adeline Aparicio PA-C) Chronic obstructive pulmonary disease Coronary artery disease Dyslipidemia Essential hypertension Kidney stones Neuropathy Other emphysema ST elevation (STEMI) myocardial infarction (10/13/23) Tobacco abuse Type 2 diabetes mellitus Surgical History Surgical History (Updated 10/15/23 @ 15:33 by Adeline Aparicio PA-C) History of cardiac catheterization History of carpal tunnel release History of coronary artery stent placement History of repair of rotator cuff Family History Family History (Re
[2023-10-15 15:59] LABS: Glucose Point of Care 129 mg/dl (65-105)
[2023-10-15] MEDS: metFORMIN HCL XR 500 MG TAB.SR.24H 2000 MG PO (18:54)
[2023-10-15] MEDS: FUROSEMIDE INJ 40 MG/4 ML VIAL IV PUSH (18:54)
[2023-10-15 20:10] LABS: Glucose Point of Care 190 mg/dl (65-105)
[2023-10-15] MEDS: traZODone HCL 50 MG TABLET PO (20:52)
[2023-10-16] VITALS (14 sets, daily range): BP systolic 92–114; BP diastolic 48–64; PULSE 79–92; RESP 16–22; TEMP 35.6–37.1; O2SAT 93–97
[2023-10-16] MEDS: clonazePAM (*CRX) 0.5 MG TABLET PO ×4 (00:35→18:00)
[2023-10-16 08:15] LABS: Glucose Point of Care 191 mg/dl (65-105)
[2023-10-16] MEDS: EMPAGLIFLOZIN 25 MG TABLET PO (08:56)
[2023-10-16] MEDS: TICAGRELOR 90 MG TABLET PO ×2 (08:56→21:18)
[2023-10-16] MEDS: GABAPENTIN 300 MG CAPSULE 600 MG PO ×3 (08:56→17:51)
[2023-10-16] MEDS: GLIMEPIRIDE 1 MG TABLET PO (08:56)
[2023-10-16] MEDS: ROSUVASTATIN 10 MG TABLET 20 MG PO (08:56)
[2023-10-16] MEDS: ASPIRIN 81 MG CHEWABLE TABLET PO (08:56)
[2023-10-16 08:59] LABS: Basophils Percent Auto 0.3 % (0.2-1.2); Eosinophils Absolute Auto 0.3 K/mm3 (0-0.3); Eosinophils Percent Auto 2.1 % (0-4.4); Hematocrit 45.9 % (37.0-47.0); Hemoglobin 14.7 g/dL (12.0-15.0); Immature Granulocyte Absolute 0.06 K/mm3 (0.00-0.031); Immature Granulocyte Percent A 0.5 % (0-0.5); Lymphocytes Absolute Auto 1.37 K/mm3 (0.9-3.2); Lymphocytes Percent Auto 11.4 % (18.3-44.2); Mean Corpuscular Hemoglobin 29.3 pg (26-34); Mean Corpuscular Volume 91.4 fl (80-100); Mean Platelet Volume 12.1 fl (7.4-10.4); Monocytes Absolute Auto 0.7 K/mm3 (0.1-0.6); Monocytes Percent Auto 5.8 % (2.6-8.5); Neutrophils Absolute Auto 9.6 K/mm3 (1.3-6.7); Neutrophils Percent Auto 79.9 % (45.5-73.1); Platelet Count Result 208 k/mm3 (150-375); Red Blood Count 5.02 M/mm3 (4.2-5.4); Red Cell Distribution Width 13.7 % (11.5-14.5)
[2023-10-16] MEDS: LIDOCAINE 5% PATCH 1 PATCH TRANSDERM (09:01)
[2023-10-16 09:10] LABS: Alanine Aminotransferase 69 U/L (6-35); Albumin Level 4.3 g/dL (3.5-5.1); Alkaline Phosphatase 108 U/L (38-126); Anion Gap 9 mmol/L (4-12); Aspartate Amino Transferase 88 U/L (14-36); Blood Urea Nitrogen 28 mg/dL (7-17); Calcium 8.7 mg/dL (8.4-10.2); Carbon Dioxide 28 mmol/L (22-30); Chloride 100 mmol/L (98-107); Estimated CRCL calculation 44 ml/min; Estimated Glomerular Filt Rate 56; Glucose 262 mg/dL (65-110); Potassium 3.8 mmol/L (3.4-5.0); Sodium 137 mmol/L (137-145)
--- NOTE | 2023-10-16 09:39 | PM.IMPN ---
Progress Note: A&P Assessment and Plan (1) ST elevation (STEMI) myocardial infarction: Onset Date: 10/13/23 Qualifiers: Involved coronary artery: unspecified coronary artery Qualified Code(s): I21.3 - ST elevation (STEMI) myocardial infarction of unspecified site Code(s): I21.3 - ST elevation (STEMI) myocardial infarction of unspecified site Status: Acute Assessment and Plan: Status post PCI and stent to the circumflex. On aspirin, Brilinta, losartan, and statin. 10/15: Blood pressure agents were held this morning because systolic was less than 110. Blood pressures reviewed (2) Elevated liver function tests: Code(s): R94.5 - Abnormal results of liver function studies Status: Acute Assessment and Plan: Likely related to [place]. Abdominal exam is benign. Continue to trend. 10/15: Down trending (3) Chronic obstructive pulmonary disease: Code(s): J44.9 - Chronic obstructive pulmonary disease, unspecified Status: Acute Assessment and Plan: No evidence of acute exacerbation. Continue maintenance inhalers and p.r.n. DuoNebs as needed. 10/15: Stable. Currently on 2 L of oxygen. Patient states she normally does not wear oxygen at home nor does she have oxygen available at home. Wean as tolerated. Apnea link ordered. (4) Type 2 diabetes mellitus: Code(s): E11.9 - Type 2 diabetes mellitus without complications Status: Acute Assessment and Plan: Continue empagliflozin and glimepiride. Initiate sliding scale insulin, Accu-Cheks, and hypoglycemic protocol. 10/15: Pain blood sugars reviewed (5) Essential hypertension: Code(s): I10 - Essential (primary) hypertension Status: Acute Assessment and Plan: Blood pressures were reviewed and they have been stable. Continue current medications and monitor closely. 10/15: Blood pressures have actually been on the low side. Cardiology has parameters to hold medications if SBP less than 110 (6) Dyslipidemia: Code(s): E78.5 - Hyperlipidemia, unspecified Status: Acute Assessment and Plan: On rosuvastatin 20 mg. LFTs elevated though likely related to [place]. (7) Tobacco abuse: Code(s): Z72.0 - Tobacco use Status: Acute Assessment and Plan: Smoking cessation is imperative and was discussed. She declines the need for nicotine patch and seems motivated to quit. Plan Thank you for allowing us to participate in this patient's care. Please do not hesitate to contact us with any questions. Subjective Date/time seen: 10/16/23 09:39 Interval history: This is a pleasant 63-year-old female smoker with coronary artery disease, hypertension, dyslipidemia, chronic obstructive pulmonary disease, and type 2 diabetes mellitus whom the hospitalist service has been consulted for help managing her medical conditions. She presented to the emergency department in the evening of 10/13/2023 with complaints of chest pain. STEMI was declared and she underwent successful PCI of a 100% occluded proximal circumflex with a drug-eluting stent. 10/15: No acute events overnight. Patient is resting in bed. She denies chest pain or shortness of breath. She is tired. Nursing had concerns on telemetry so an EKG was obtained. EKG with ST elevation as previously seen. Cardiology is aware and is not concerned at this time as patient is asymptomatic an EKG appears relatively unchanged. Review of Systems Review of Systems: All systems reviewed & are unremarkable except as noted in HPI and below Exam Narrative: General: well appearing, appears stated age. HEENT: normocephalic, atraumatic. Mucous membranes moist. EOMI, PERRLA, bilateral sclera anicteric, no conjunctival injection. Neck supple without JVD, lymphadenopathy, or bruit. Respiratory: clear to auscultation bilaterally. No rales/rhonic/wheezes. Cardiovascular: Regular rate and rhythm,
[2023-10-16] MEDS: FLUTICASONE/UMECLIDIN/VILANTER 100-62.5-25 MCG ELLIPTA 1 PUFF INHALATION ×2 (09:50→09:55)
--- NOTE | 2023-10-16 11:08 | ECG_ITS ---
Test Date: 2023-10-16 08:18:33 Measurements Intervals [place] Rate: 83 P: -16 [place]: 117 QRS: 168 QRSD: 87 T: -83 QT: 376 QTc: 443 Interpretive Statements SINUS RHYTHM WITH SHORT [place] INTERVAL ST-elevation inferolateral leads Compared to ECG 10/14/2023 08:33:13 no change compared to prior EKG Electronically Signed On 10-16-2023 13:05:21 CDT by Maldonado Henning M.D.
--- NOTE | 2023-10-16 12:34 | PM.PNCARD ---
Progress Note: A&P Assessment and Plan (1) ST elevation (STEMI) myocardial infarction: Onset Date: 10/13/23 Qualifiers: Involved coronary artery: unspecified coronary artery Qualified Code(s): I21.3 - ST elevation (STEMI) myocardial infarction of unspecified site Code(s): I21.3 - ST elevation (STEMI) myocardial infarction of unspecified site Status: Acute Plan STEMI lateral wall status post PCI of circumflex with NISA, persistent ST elevation in lateral leads but asymptomatic Acute on chronic systolic heart failure ejection fraction 45% currently compensated Proximal atrial tachycardia Hypertension Continue aspirin and Brilinta lasix 40 mg po daily Continue losartan and spironolactone Continue statin Subjective Date/time seen: 10/16/23 12:34 Interval history: SOB resolved Review of Systems Review of Systems: All systems reviewed & are unremarkable except as noted in HPI and below Exam Const: General: comfortable and no acute distress Other: Able to lie flat HENMT: Face/Nose/Sinus: Normal nares present and no epistaxis Mouth: Yes moist mucous membranes Eyes: Sclera: sclerae normal Pupils: Equal, round and reactive pupils present Neck: Neck: supple and no JVD Carotids: no bruits Resp: Auscultation: clear to auscultation bilaterally and lung sounds not diminished Other: No chest wall tenderness Cardio: Rate: regular rate Rhythm: regular rhythm Heart sounds: no gallops, no murmurs and no rubs GI: GI Palp: Yes Soft to palpation and No Tenderness to palpation present (GI) Auscultation: normal bowel sounds Skin: General skin exam: normal color, rashes and/or lesions noted and no erythema Other: Warm Neuro: Cranial nerves: Yes Equal, round and reactive pupils present Speech: normal speech Other: No obvious focal deficit or facial asymmetry Extrem: General: no edema Other: Normal capillary refills Intact distal pulses. Objective Data Vital Signs Vital Signs: Vital Signs - 24 hr 10/15/23 14:00 10/15/23 15:44 10/15/23 16:00 Temperature 36.0 C L Pulse Rate 82 77 75 Respiratory Rate 22 H Blood Pressure 133/50 L Pulse Oximetry 98 Oxygen Delivery Oxygen Flow Rate 10/15/23 19:51 10/15/23 18:00 10/15/23 16:00 Temperature 37.1 C Pulse Rate 88 76 Respiratory Rate 16 Blood Pressure 138/58 L Pulse Oximetry 95 92 Oxygen Delivery Nasal Cannula Oxygen Flow Rate 2 10/15/23 20:00 10/15/23 20:00 10/15/23 21:59 Temperature Pulse Rate 77 94 Respiratory Rate Blood Pressure Pulse Oximetry 95 Oxygen Delivery Nasal Cannula Oxygen Flow Rate 2 10/16/23 00:00 10/16/23 00:00 10/16/23 04:00 Temperature 36.7 C 36.9 C Pulse Rate 90 90 Respiratory Rate 16 18 Blood Pressure 92/53 L 100/54 L Pulse Oximetry 94 94 96 Oxygen Delivery Nasal Cannula Oxygen Flow Rate 2 10/16/23 04:00 10/16/23 00:00 10/16/23 02:00 Temperature Pulse Rate 87 82 Respiratory Rate Blood Pressure Pulse Oximetry 96 Oxygen Delivery Nasal Cannula Oxygen Flow Rate 2 10/16/23 04:00 10/16/23 06:00 10/16/23 07:47 Temperature 36.3 C L Pulse Rate 88 79 89 Respiratory Rate 18 Blood Pressure 107/55 L Pulse Oximetry 93 Oxygen Delivery Oxygen Flow Rate Intake/Output Intake/Output: Intake & Output 10/13/23 10/14/23 10/15/23 10/16/23 23:59 23:59 23:59 23:59 Intake Total 2700 760 Output Total 3200 2600 1450 Balance -500 -5616 -1456 Meds/Results Medications: Active Medications Generic Name Dose Route Start Last Admin Trade Name Freq PRN Reason Stop Dose Admin Albuterol 1 puff 10/14/23 08:57 Albuterol Sulfate (*Sp) Aerosol 1 Puff INHALATION Q4H PRN bronchospasm Aspirin 81 mg 10/14/23 08:00 10/16/23 08:56 Aspirin 81 Mg Chewable Tablet PO 81 mg DAILY@0800 AMOS Administration Clonazepam 0.5 mg 10/15/23 07:24 06
[2023-10-16 13:02] LABS: Glucose Point of Care 288 mg/dl (65-105)
[2023-10-16] MEDS: metFORMIN HCL XR 500 MG TAB.SR.24H 2000 MG PO (17:51)
[2023-10-16 17:56] LABS: Glucose Point of Care 428 mg/dl (65-105)
[2023-10-16] MEDS: INSULIN ASPART (*BKC) 100 UNITS/ML 12 UNITS SUB-Q (18:55)
[2023-10-16 21:13] LABS: Glucose Point of Care 164 mg/dl (65-105)
[2023-10-16] MEDS: INSULIN GLARGINE (*BKC) 100 UNITS/ML 11 UNITS SUB-Q (21:15)
[2023-10-16] MEDS: traZODone HCL 50 MG TABLET PO (21:18)
[2023-10-16] MEDS: ZOLPIDEM TARTRATE (*CRX) 5 MG TABLET PO (21:36)
[2023-10-17] VITALS (12 sets, daily range): BP systolic 109–122; BP diastolic 56–68; PULSE 77–95; RESP 15–18; TEMP 36.3–37.5; O2SAT 93–97
[2023-10-17] MEDS: clonazePAM (*CRX) 0.5 MG TABLET PO ×2 (04:31→14:01)
[2023-10-17 04:43] LABS: Basophils Percent Auto 0.2 % (0.2-1.2); Eosinophils Absolute Auto 0.3 K/mm3 (0-0.3); Eosinophils Percent Auto 2.2 % (0-4.4); Hematocrit 43.4 % (37.0-47.0); Hemoglobin 14.2 g/dL (12.0-15.0); Immature Granulocyte Absolute 0.06 K/mm3 (0.00-0.031); Immature Granulocyte Percent A 0.5 % (0-0.5); Lymphocytes Percent Auto 13.1 % (18.3-44.2); Mean Corpuscular HGB Conc 32.7 g/dl (32-36); Mean Corpuscular Hemoglobin 29.2 pg (26-34); Mean Corpuscular Volume 89.1 fl (80-100); Mean Platelet Volume 12.2 fl (7.4-10.4); Monocytes Absolute Auto 0.8 K/mm3 (0.1-0.6); Monocytes Percent Auto 6.2 % (2.6-8.5); Neutrophils Absolute Auto 10.1 K/mm3 (1.3-6.7); Neutrophils Percent Auto 77.8 % (45.5-73.1); Platelet Count Result 229 k/mm3 (150-375); Red Blood Count 4.87 M/mm3 (4.2-5.4); Red Cell Distribution Width 13.7 % (11.5-14.5)
[2023-10-17 04:52] LABS: Alanine Aminotransferase 53 U/L (6-35); Albumin Level 4.2 g/dL (3.5-5.1); Alkaline Phosphatase 111 U/L (38-126); Anion Gap 7 mmol/L (4-12); Aspartate Amino Transferase 56 U/L (14-36); Bilirubin,Total 0.8 mg/dL (0.2-1.3); Blood Urea Nitrogen 26 mg/dL (7-17); Calcium 8.8 mg/dL (8.4-10.2); Carbon Dioxide 27 mmol/L (22-30); Chloride 104 mmol/L (98-107); Estimated CRCL calculation 62 ml/min; Estimated Glomerular Filt Rate > 60; Glucose 188 mg/dL (65-110); Magnesium 2.2 mg/dL (1.6-2.3); Potassium 3.7 mmol/L (3.4-5.0); Sodium 138 mmol/L (137-145)
[2023-10-17] MEDS: GABAPENTIN 300 MG CAPSULE 600 MG PO ×2 (08:05→14:01)
[2023-10-17] MEDS: TICAGRELOR 90 MG TABLET PO (08:05)
[2023-10-17] MEDS: ASPIRIN 81 MG CHEWABLE TABLET PO (08:05)
[2023-10-17] MEDS: EMPAGLIFLOZIN 25 MG TABLET PO (08:05)
[2023-10-17] MEDS: SPIRONOLACTONE 25 MG TABLET PO (08:05)
[2023-10-17] MEDS: INSULIN ASPART (*BKC) 100 UNITS/ML SUB-Q (08:05)
[2023-10-17] MEDS: ROSUVASTATIN 10 MG TABLET 20 MG PO (08:05)
[2023-10-17] MEDS: METOPROLOL SUCCINATE EXT REL 25 MG TABCR PO (08:05)
[2023-10-17] MEDS: GLIMEPIRIDE 1 MG TABLET PO (08:05)
[2023-10-17] MEDS: LOSARTAN POTASSIUM 25 MG TABLET PO (08:05)
[2023-10-17] MEDS: FUROSEMIDE 40 MG TABLET PO (08:05)
[2023-10-17] MEDS: LIDOCAINE 5% PATCH 1 PATCH TRANSDERM (08:06)
[2023-10-17 08:28] LABS: Glucose Point of Care 215 mg/dl (65-105)
[2023-10-17] MEDS: FLUTICASONE/UMECLIDIN/VILANTER 100-62.5-25 MCG ELLIPTA 1 PUFF INHALATION (09:18)
--- NOTE | 2023-10-17 09:55 | PM.PNCARD ---
Progress Note: A&P Assessment and Plan (1) ST elevation (STEMI) myocardial infarction: Onset Date: 10/13/23 Qualifiers: Involved coronary artery: unspecified coronary artery Qualified Code(s): I21.3 - ST elevation (STEMI) myocardial infarction of unspecified site Code(s): I21.3 - ST elevation (STEMI) myocardial infarction of unspecified site Status: Acute Plan STEMI lateral wall status post PCI of circumflex with NISA, persistent ST elevation in lateral leads but asymptomatic Acute on chronic systolic heart failure ejection fraction 45% currently compensated Proximal atrial tachycardia Hypertension Continue aspirin and Brilinta lasix 40 mg po daily Continue losartan and spironolactone Continue statin Subjective Date/time seen: 10/17/23 09:55 Interval history: Cardiology follow up for CAD, STEMI Date of service 10/17/2023: Review of Systems Review of Systems: All systems reviewed & are unremarkable except as noted in HPI and below ROS unobtainable: Yes unobtainable due to medical condition Exam Const: General: comfortable and no acute distress Other: Able to lie flat HENMT: Face/Nose/Sinus: Normal nares present and no epistaxis Mouth: Yes moist mucous membranes Eyes: Sclera: sclerae normal Pupils: Equal, round and reactive pupils present Neck: Neck: supple and no JVD Carotids: no bruits Other: no obvious JVD, no carotid bruits are audible Resp: Effort & Inspection: normal respiratory effort Auscultation: clear to auscultation bilaterally and lung sounds not diminished Other: No chest wall tenderness Cardio: Rate: regular rate Rhythm: regular rhythm Heart sounds: no gallops, no murmurs and no rubs Other: PMI difficult to palpate, no murmur S4 gallop is audible GI: Auscultation: normal bowel sounds Skin: General skin exam: normal color, rashes and/or lesions noted and no erythema Other: Warm Neuro: Cranial nerves: Yes Equal, round and reactive pupils present Speech: normal speech Other: No obvious focal deficit or facial asymmetry Extrem: General: no edema Other: Normal capillary refills Intact distal pulses. Psych: Appearance: grossly normal Objective Data Vital Signs Vital Signs: Vital Signs - 24 hr 10/16/23 10:00 10/16/23 12:00 10/16/23 12:00 Temperature 35.6 C L Pulse Rate 79 84 90 Respiratory Rate 18 Blood Pressure 96/48 L Pulse Oximetry 95 Oxygen Delivery Oxygen Flow Rate 10/16/23 12:00 10/16/23 16:00 10/16/23 14:00 Temperature 37.1 C Pulse Rate 91 89 Respiratory Rate 22 H Blood Pressure 110/51 L Pulse Oximetry 96 96 Oxygen Delivery Nasal Cannula Oxygen Flow Rate 2 10/16/23 16:00 10/16/23 18:00 10/16/23 16:00 Temperature Pulse Rate 92 82 Respiratory Rate Blood Pressure Pulse Oximetry 94 Oxygen Delivery Nasal Cannula Oxygen Flow Rate 2 10/16/23 19:27 10/16/23 20:00 10/16/23 20:00 Temperature 35.7 C L Pulse Rate 91 87 87 Respiratory Rate 16 16 Blood Pressure 114/64 Pulse Oximetry 97 97 Oxygen Delivery Nasal Cannula Oxygen Flow Rate 2 10/16/23 22:10 10/17/23 00:00 10/17/23 00:00 Temperature 36.7 C Pulse Rate 87 92 92 Respiratory Rate 18 18 Blood Pressure 111/56 L Pulse Oximetry 93 93 Oxygen Delivery Nasal Cannula Oxygen Flow Rate 2 10/17/23 00:00 10/17/23 02:16 10/17/23 04:00 Temperature Pulse Rate 90 86 86 Respiratory Rate 18 Blood Pressure Pulse Oximetry 93 Oxygen Delivery Nasal Cannula Oxygen Flow Rate 2 10/17/23 04:59 10/17/23 04:00 10/17/23 04:00 Temperature 37.5 C Pulse Rate 77 88 Respiratory Rate 18 Blood Pressure 111/66 Pulse Oximetry 97 93 Oxygen Delivery Oxygen Flow Rate 10/17/23 06:00 10/17/23 07:47 10/17/23 08:05 Temperature 36.4 C Pulse Rate 88 95 93 Respiratory Rate 15 Blood Pressure 122/68 Pulse Oximetry 97
[2023-10-17 12:01] LABS: Glucose Point of Care 144 mg/dl (65-105)
--- NOTE | 2023-10-17 13:01 | PM.DS ---
DS: Admitting Diagnosis Discharge Date 10/17/2023 Admitting Diagnosis chest pain DS: Discharge Diagnosis Discharge Diagnosis (1) ST elevation (STEMI) myocardial infarction: Onset Date: 10/13/23 Qualifiers: Involved coronary artery: unspecified coronary artery Qualified Code(s): I21.3 - ST elevation (STEMI) myocardial infarction of unspecified site Code(s): I21.3 - ST elevation (STEMI) myocardial infarction of unspecified site Status: Acute Assessment and Plan: Presents with acute posterior inferior myocardial infarction resulting from 100% occlusion of the proximal circumflex now s/p PCI. Mildly hypotensive this morning, receiving fluid bolus. Still complaining of chest pain which is highly reproducible. Continue DAPT with Brilinta 90mg b.i.d for 1 year and ASA 81mg daily indefinitely Continue high intensity statin Continue losartan, metoprolol Continue aggressive risk factor modification for CAD including smoking cessation Echo showed mild LV dysfunction, EF 45% Cardiac rehab referral (2) Dyslipidemia: Code(s): E78.5 - Hyperlipidemia, unspecified Status: Acute Assessment and Plan: Continue high intensity statin (3) Coronary artery disease: Code(s): I25.10 - Atherosclerotic heart disease of [place] coronary artery without angina pectoris Status: Acute Assessment and Plan: As above, continue DAPT and high intensity statin. Lifestyle modifications for CAD. (4) Tobacco abuse: Code(s): Z72.0 - Tobacco use Status: Acute Assessment and Plan: Smoking cessation recommended. DS: Summary Hospital Course Hospital Course: Presented 10/13/23 with chief complaint of chest pain x 24 hours. Her presenting ECG to the emergency room was nondiagnostic. A 2nd tracing however demonstrates inferior posterior STEMI the team has been activated shewas brought emergently to the cardiac catheterization lab in this setting. Angiogram revealed right coronary dominant circulation with acute posterior inferior myocardial infarction resulting from 100% occlusion of the proximal circumflex. She had no significant left main, lad or right coronary disease Ejection fraction of 45% and very high LVEDP. Underwent successful emergency PCI including angioplasty and stenting of the target lesion using the Orsiro drug-eluting stent detailed above with an excellent anatomical result restoring HIREN 3 flow into the circumflex. Continued to have some chest pain after PCI which gradually resolved. Started on medical therapy for her cardiomyopathy and new diagnosis of coronary artery disease. Time Spent with Patient Time attestation: Total time spent providing and/or coordinating discharge services: Exam Const: General: comfortable, no acute distress, alert and awake Orientation/consciousness: patient oriented x3 HENMT: Head: normal to inspection Eyes: General: appearance normal, both eyes and all related structures Pupils: Equal, round and reactive pupils present Neck: Neck: normal visual inspection, supple and no JVD Carotids: normal carotid upstroke Resp: Effort & Inspection: normal respiratory effort Auscultation: clear to auscultation bilaterally Cardio: Rate: regular rate Rhythm: regular rhythm Heart sounds: S1 normal heart sound present, S2 normal heart sound present and no murmurs GI: Auscultation: normal bowel sounds Skin: General skin exam: normal color Neuro: General: patient oriented x3 Cranial nerves: Yes Equal, round and reactive pupils present Extrem: General: normal to inspection Other: Arterial access site free from bleeding, hematoma. Good distal pulses Psych: Appearance: grossly normal Mental Status: mental status grossly normal DS: Data Data Completed and Pending Labs on day of discharge: Labs from last 24 hours 10/17/23 10/17/23 10/17/23 11:22 07:46 04:19 WBC 13.0 H RBC 4.87 Hgb 14.2 Hct 4
== END 2023-10-17 14:40 | disposition home or self-care (01) | DRG 321 ==
LOC: ANHED 19:06 → ANHCATHLAB 19:07 → ANHICU 20:27 → ANHIMU 10-17 09:53 → ANHICU 10-18 09:13
PROVIDERS: Internal Medicine; Nurse Practitioner Acute Care; Student in an Organized Health Care Education/Training Program; Admitting Provider Specialist; Emergency Provider Physician Assistant; PCP Family Medicine; Visit Provider Nurse Practitioner
PROC: 4A023N7 Measurement of Cardiac Sampling and Pressure, Left Heart, Percutaneous Approach (ICD-10-PCS; CPT 93452; principal; 2023-10-13 19:25)
PROC: 027034Z Dilation of Coronary Artery, One Artery with Drug-eluting Intraluminal Device, Percutaneous Approach (ICD-10-PCS; 2023-10-13 19:25)
DX: I21.29 ST elevation (STEMI) myocardial infarction involving other sites (principal); I50.21 Acute systolic (congestive) heart failure; I11.0 Hypertensive heart disease with heart failure; I25.10 Atherosclerotic heart disease of native coronary artery without angina pectoris; J44.9 Chronic obstructive pulmonary disease, unspecified; E11.42 Type 2 diabetes mellitus with diabetic polyneuropathy; F17.210 Nicotine dependence, cigarettes, uncomplicated; J43.9 Emphysema, unspecified; E78.2 Mixed hyperlipidemia; I47.9 Paroxysmal tachycardia, unspecified
CPT/HCPCS: 36415; 71045; 71275; 74174; 80053; 80061; 82948; 83605; 83690; 83735; 84100; 84484; 85025; 85610; 85730; 87641; 93005; 93458; 94640; 94762; 96374; 96375; 96376; 99285; A9270; C1725; C1769; C1874; C1887; C1894; C9606; J0461; J0583; J1644; J1815; J1940; J2250; J2270; J2405; J3010; J7030; J7040; L1830; Q9967